=== PATIENT | female | born 1985 | race Caucasian/White ===

== ENCOUNTER → 2021-10-29 | Outpatient (CLI) | payer OTHER ==
--- NOTE | 2021-10-29 11:29 | CT ---
EXAMINATION TYPE: CT abdomen pelvis wo con DATE OF EXAM: 10/29/2021 HISTORY: RLQ pain CT DLP: 848 mGycm. Automated Exposure Control for Dose Reduction was Utilized. TECHNIQUE: CT scan of the abdomen and pelvis is performed with oral but without IV contrast. COMPARISON: NONE FINDINGS: Within the limitations of a non-contrast study, the following observations are made. LUNG BASES: No significant abnormality is appreciated. LIVER/GB: Intraluminal gallstones in gallbladder. No surrounding fluid or fat stranding. No biliary d ilatation. PANCREAS: No significant abnormality is seen. SPLEEN: No significant abnormality is seen. ADRENALS: No significant abnormality is seen. KIDNEYS: No renal stones or hydronephrosis is present bilaterally. No intraluminal calculus in bladde r. BOWEL: Oral contrast reaches the proximal to mid redundant sigmoid colon. There is contrast-filled no rmal-appearing appendix from base of cecum. There is no suspicious small or large bowel dilatation. T erminal ileum appears within normal limits coronal image 48. GENITAL ORGANS: Anteverted uterus. Ovaries symmetric and normal in size. Occasional scattered pelvic phleboliths. LYMPH NODES: No greater than 1cm abdominal or pelvic lymph nodes are appreciated. OSSEOUS STRUCTURES: No significant abnormality is seen. OTHER: Incidental note is made of left-sided IVC which is normal variant. IMPRESSION: No CT evidence for acute appendicitis. Gallstones without CT evidence for acute cholecyst itis.
== END | disposition home or self-care (01) ==
LOC: RADCTMAIN 08:49
PROVIDERS: ATTEND Family Medicine
DX: K80.20 Calculus of gallbladder without cholecystitis without obstruction (principal)
CPT/HCPCS: 74176

== ENCOUNTER → 2022-01-21 | Outpatient (CLI) | payer OTHER ==
--- NOTE | 2022-01-21 16:36 | US ---
EXAMINATION TYPE: US abdomen limited DATE OF EXAM: 01/21/2022 COMPARISON: CT CLINICAL HISTORY: R10.811 RUQ abd pain. RUQ pain TECHNIQUE: Multiple sonographic images of the right upper quadrant are obtained. FINDINGS: EXAM MEASUREMENTS: Liver Length: 13.7 cm Gallbladder Wall: 0.2 cm CBD: 0.5 cm Right Kidney: 10.6 x 4.0 x 4.2 cm Pancreas: Obscured by bowel gas Liver: Visualized portions appeared wnl Gallbladder: Multiple, mobile gallstones, wall not thickened Evidence for sonographic Singh's sign: No CBD: wnl Right Kidney: wnl, lower pole gassed out IMPRESSION: 1. No evidence for acute intra-abdominal process. 2. Cholelithiasis. 3. Lower pole right kidney is suboptimally evaluated.
== END | disposition home or self-care (01) ==
LOC: RADUSWWP 16:07
PROVIDERS: ATTEND Family Medicine
DX: K80.20 Calculus of gallbladder without cholecystitis without obstruction (principal)
CPT/HCPCS: 76705

== ENCOUNTER 2022-04-17 08:13 | Observation (INO) | payer OTHER ==
--- NOTE | 2022-04-17 08:35 | ED ---
General Adult HPI - General Chief complaint: Head Injury Stated complaint: [facility] - head injury Time Seen by Provider: 04/17/22 08:19 Source: patient Mode of arrival: ambulatory Limitations: no limitations - History of Present Illness Initial comments: Dictation was produced using [employer] dictation software. please excuse any grammatical, word or spelling errors. 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 Patient states she was cleaning one of the rooms when she walked into the TV. She struck the corner of the TV on the top of her head. Patient given to work today and was having symptoms of headache and seeing black spots that lasted for a couple seconds. Patient denies any loss of consciousness during the event. The ROS documented in this emergency department record has been reviewed and confirmed by me. Those systems with pertinent positive or negative responses have been documented in the HPI. All other systems are other negative and/or noncontributory. PHYSICAL EXAM: General Impression: Alert and oriented x3, not in acute distress HEENT: Normocephalic atraumatic, extra-ocular movements intact, pupils equal and reactive to light bilaterally, mucous membranes moist. Cardiovascular: Heart regular rate and rhythm Chest: Able to complete full sentences, no retractions, no tachypnea Musculoskeletal: Pulses present and equal in all extremities, no peripheral edema Motor: no focal deficits noted Neurological: CN II-XII grossly intact, no focal motor or sensory deficits noted Skin: Intact with no visualized rashes Psych: Normal affect and mood ED course: 36-year-old female presents emergency department for evaluation of head injury. Vital signs upon arrival are within acceptable limits. Computed tomography scan of the head and C-spine was obtained. Cervical spine was not initially ordered however hardware technician requested that orders be changed to CT brain and C-spine. There was incidental finding of pneumomediastinum. Patient reevaluated at bedside states that she has not been coughing or having shortness of breath per she is a nonsmoker. She does not consume marijuana or use any illicit drugs. This is likely a spontaneous pneumomediastinum. Patient reevaluated at bedside at 9:50 AM findings to medical condition. Patient will be admitted to [facility] hospitalist group with pulmonology on consult. Case discussed with Dr. Jerome Pleitez of pulmonology request the patient be admitted with repeat x-ray tomorrow. [facility] Related Data Home Medications Medication Instructions Recorded Confirmed Topiramate 50 mg PO HS 03/16/22 03/16/22 buPROPion XL [Wellbutrin XL] 300 mg PO HS 03/16/22 03/16/22 busPIRone HCL [Buspirone HCl] 15 mg PO HS 03/16/22 03/16/22 lamoTRIgine 150 mg PO HS 03/16/22 03/16/22 lisinopriL [Zestril] 20 mg PO HS 03/16/22 03/16/22 Allergies Allergy/AdvReac Type Severity Reaction Status Date / Time No Known Allergies Allergy Verified 04/17/22 08:25 Review of Systems ROS Statement: Those systems with pertinent positive or pertinent negative responses have been documented in the HPI. ROS Other: All systems not noted in ROS Statement are negative. Past Medical History Past Medical History: Hypertension History of Any Multi-Drug Resistant Organisms: None Reported Past Surgical History: Tubal Ligation Past Anesthesia/Blood Transfusion Reactions: No Reported Reaction Past Psychological History: Bipolar Smoking Status: Never smoker Past Alcohol Use History: Occasional Past Drug Use History: None Reported - Past Family History Mother Family Medical History: No Reported History General Exam Limitations: no limitations Course Vital Signs 04/17/22 08:22 Temperature 98 F Pulse Rate 80 Respiratory 18 Rate Blood Pressure 104/74 O2 Sat by Pulse 98 Oximetry Disposition Clinical Impression: Pneumomediastinum Disposition: ADMITTED IP TO THIS HOSP Condition: Fair Referrals: None,Stated [Primary Care Provider] - 1-2 days Decision Time: 09:49
--- NOTE | 2022-04-17 09:23 | CT ---
EXAMINATION TYPE: CT brain and cervical spine wo con DATE OF EXAM: 04/17/2022 COMPARISON: None HISTORY: 36-year-old female pain after Head injury CT DLP: 1331.9 mGycm Automated exposure control for dose reduction was used. Technique: Examination of the head was done in axial plane without intravenous contrast. Coronal and sagittal reconstructions performed. CT of the cervical spine was obtained in axial plane without intravenous injection of contrast mater ial. Coronal and sagittal reformatted images were obtained from the axial views for evaluation of f ractures, spinal alignment and canal. FINDINGS: Head: There is no evidence of acute intracranial hemorrhage, acute ischemic changes, mass, mass-effect, or extra-axial fluid collection. There is no effacement of cerebral sulci or basal subarachnoid cister ns. There is no hydrocephalus. There is no midline shift. Coon-white matter distinction is preserv ed. There is a polyp or mucosal retention cyst measuring 9 mm along the medial aspect of the right maxill galindo sinus. Paranasal sinuses and mastoid air cells are otherwise well pneumatized. Leftward nasal sep sabina lesion. Mastoid air cells are well pneumatized. Orbits and globes are intact. Cervical spine: Prominent pneumomediastinum incidentally noted on the right superior mediastinum extending to the tho racic inlet. No pneumothorax seen at the uppermost lungs. Reversal of the normal cervical lordosis could be positional or due to muscle spasm. No acute fracture or malalignment of the cervical spine. Minimal facet degenerative change lower cervical spine on the left. No evident canal compromise or neural foraminal narrowing. Sagittal and coronal reformatted images confirm above findings. COMBINED IMPRESSION: 1. No acute intracranial abnormality seen. 2. INCIDENTAL PNEUMOMEDIASTINUM ALONG THE RIGHT SUPERIOR MEDIASTINUM EXTENDING TO THE THORACIC INLET. CLINICALLY CORRELATE. 3. Otherwise, no acute fracture or malalignment of the cervical spine.
[2022-04-17] MEDS ORDERED: NALOXONE 0.4 MG/ML 1 ML VIAL IV PRN (09:49)
[2022-04-17] MEDS ORDERED: SODIUM CHLORIDE 0.9% 1,000 ML IV SCH (10:00)
[2022-04-17 10:02] LABS: Basophils # (A) 0.1 k/uL (0-0.2); Basophils % (A) 1 %; Eosinophils # (A) 0.2 k/uL (0-0.7); Eosinophils % (A) 3 %; HCT 37.7 % (34.0-46.0); HGB 13.5 gm/dL (11.4-16.0); Lymphocytes # (A) 1.9 k/uL (1.0-4.8); Lymphocytes % (A) 33 %; MCH 32.1 pg (25.0-35.0); MCHC 35.8 g/dL (31.0-37.0); MCV 89.6 fL (80.0-100.0); Mean Platelet Volume 7.7; Monocytes # (A) 0.3 k/uL (0-1.0); Monocytes % (A) 5 %; Neutrophils # (A) 3.2 k/uL (1.3-7.7); Neutrophils % (A) 57 %; Platelet Count 244 k/uL (150-450); RBC 4.21 m/uL (3.80-5.40); RDW 12.3 % (11.5-15.5); WBC 5.7 k/uL (3.8-10.6)
--- NOTE | 2022-04-17 10:03 | XR ---
EXAMINATION TYPE: XR chest 2V DATE OF EXAM: 04/17/2022 COMPARISON: None HISTORY: 36-year-old female pneumomediastinum on CT today, shortness of breath TECHNIQUE: PA and lateral views FINDINGS: The cardiomediastinal silhouette, aorta, and pulmonary vasculature are within normal limits. Known ri ght superior pneumomediastinum not well demonstrated radiographically. No pneumothorax. Heart normal size aorta and pulmonary vasculature within normal limits. No consolidation or pleural effusion. IMPRESSION: No acute cardiopulmonary process. The known right superior pneumomediastinum is not well appreciated radiographically.
[2022-04-17 10:19] LABS: African American GFR (CKD) >90 (>60 ml/min/1.73 sqM); Anion Gap 6 mmol/L; Blood Urea Nitrogen 18 mg/dL (7-17); Calcium 9.1 mg/dL (8.4-10.2); Carbon Dioxide 24 mmol/L (22-30); Chloride 110 mmol/L (98-107); Glucose 90 mg/dL (74-99); Non-African American GFR(CKD) >90 (>60 ml/min/1.73 sqM); Sodium 140 mmol/L (137-145)
[2022-04-17] MEDS ORDERED: ACETAMINOPHEN TAB 500 MG TAB PO STA (11:59)
[2022-04-17] MEDS ORDERED: ACETAMINOPHEN TAB 325 MG TAB PO PRN (11:59)
[2022-04-17 12:49] VITALS: BP 108/71; PULSE 77; RESP 14; TEMP 98.1
--- NOTE | 2022-04-17 14:42 | P.HPIM ---
History of Present Illness H&P Date: 04/17/22 This is a 36 year old female with medical history of migraines, bipolar disorder/anxiety, hypertension. 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 There is no focal lesion and scalp is soft now, patient states she did have a tender nodule there yesterday. Since she has reported dizziness and headache and reported to the ER today for further evaluation. Patient continues to report dizziness. Head and cervical spine CT was completed with incidental finding of pneumomediastinum along right superior mediastinum extending to the thoracic inlet. The patient reports she was recently treated with antibiotics fo r a common cold. Denies fever or chills, denies chest pain, no shortness of breath. She reports diffuse headache and is requesting medication. Temperature 98, heart rate 80, blood pressure 104/74, 98% room air. Home medications resumed, lisinopril has been placed on hold. Patient is admitted to observation and pulmonary has been consulted. REVIEW OF SYSTEMS: CONSTITUTIONAL: No fever, no malaise, no fatigue. HEENT: No recent visual problems or hearing problems. Denied any sore throat. CARDIOVASCULAR: No chest pain, orthopnea, PND, no palpitations, no syncope. PULMONARY: Reports shortness of breath, no cough, no hemoptysis. GASTROINTESTINAL: No diarrhea, no nausea, no vomiting, no abdominal pain. NEUROLOGICAL: Reports dizziness and headache. HEMATOLOGICAL: Denies any bleeding or petechiae. GENITOURINARY: Denies any burning micturition, frequency, or urgency. MUSCULOSKELETAL/RHEUMATOLOGICAL: Denies any joint pain, swelling, or any muscle pain. ENDOCRINE: Denies any polyuria or polydipsia. The rest of the 14-point review of systems is negative. PHYSICAL EXAMINATION: GENERAL: The patient is alert and oriented x3, not in any acute distress. Well developed, well nourished. HEENT: Pupils are round and equally reacting to light. EOMI. No scleral icterus. No conjunctival pallor. Normocephalic, atraumatic. No pharyngeal erythema. No thyromegaly. CARDIOVASCULAR: S1 and S2 present. No murmurs, rubs, or gallops. PULMONARY: Chest is clear to auscultation, no wheezing or crackles. No lungs sound noted right upper lobe. ABDOMEN: Soft, nontender, nondistended, normoactive bowel sounds. No palpable organomegaly. MUSCULOSKELETAL: No joint swelling or deformity. EXTREMITIES: No cyanosis, clubbing, or pedal edema. NEUROLOGICAL: Gross neurological examination did not reveal any focal deficits. SKIN: No rashes. Assessment and plan Assessment Head trauma secondary to hitting head on sharp corner Dizziness Spontaneous pneumomediastinum History hypertension, currently normotensive History bipolar/anxiety Full Code Plan Pulmonary consultation Resume home medications Hold lisinopril Supportive care The impression and plan of care has been dictated by Darlin Shultz Nurse Practitioner as directed. Dr. Laura MD I have performed a history and physical examination and medical decision making of this patient, discussed the same with the dictator, and agree with the dictators assessment and plan as written, documented as a scribe. Based on total visit time, I have performed more than 50% of this visit. Past Medical History Past Medical History: Hypertension History of Any Multi-Drug Resistant Organisms: None Reported Past Surgical History: Tubal Ligation Past Anesthesia/Blood Transfusion Reactions: No Reported Reaction Past Psychological History: Bipolar Smoking Status: Never smoker Past Alcohol Use History: Occasional Past Drug Use History: None Reported - Past Family History Mother Family Medical History: No Reported History Medications and Allergies Home Medications Medication Instructions Recorded Confirmed Type Topiramate 50 mg PO HS 03/16/22 04/17/22 History buPROPion XL [Wellbutrin XL] 300 mg PO HS 03/16/22 04/17/22 History busPIRone HCL 15 mg PO HS 03/16/22 04/17/22 History lamoTRIgine 150 mg PO HS 03/16/22 04/17/22 History Allergies Allergy/AdvReac Type Severity Reaction Status Date / Time methylprednisolone AdvReac Nausea & Verified 04/17/22 10:24 [From Medrol] Vomiting Physical Exam Vitals: Vital Signs Temp Pulse Resp BP Pulse Ox 04/17/22 10:18 84 15 107/80 100 04/17/22 08:22 98 F 80 18 104/74 98 Intake and Output 04/16/22 04/17/22 04/17/22 22:59 06:59 14:59 Other: Weight 72.121 kg Results CBC & Chem 7: 04/17/22 09:46 04/17/22 09:46 Labs: Abnormal Lab Results - Last 24 Hours (Table) 04/17/22 Range/Units 09:46 Chloride 110 H (98-107) mmol/L BUN 18 H (7-17) mg/dL Assessment and Plan Time with Patient: Less than 30
[2022-04-17] MEDS ORDERED: buPROPion XL 300 MG TAB.ER.24H PO SCH (21:00)
[2022-04-17] MEDS ORDERED: lamoTRIgine 100 MG TAB PO SCH (21:00)
[2022-04-17] MEDS ORDERED: busPIRone HCl 5 MG TAB PO SCH (21:00)
[2022-04-17] MEDS ORDERED: TOPIRAMATE 25 MG TAB PO SCH (21:00)
--- NOTE | 2022-04-18 23:04 | P.DS ---
Providers Date of admission: 04/17/22 09:50 Attending physician: Ana Lilia Sanchez Consults: 04/17/22 09:49 Consult Physician Routine Consulting Provider: Jeroem Pleitez Reason/Comments: pneumomediastinum Do you want consulting provider notified?: Already Contacted Primary care physician: Stated None Hospital Course: Final Diagnosis Head trauma secondary to hitting head on sharp corner Dizziness Spontaneous pneumomediastinum History hypertension, currently normotensive History bipolar/anxiety Full Code Discharge Disposition Patient is stable for discharge home. Recommend to follow up with a primary care provider. Patient instructed to return to the ER if she experiences any chest pain or shortness of breath. Patient is instructed to hold her lisinopril secondary to blood pressure in the low 100s systolic. Check blood pressure daily at home and resume lisinopril if blood pressure becomes elevated above the 130s systolic. Hospital Course This is a 36 year old female with medical history of migraines, bipolar disorder/anxiety, hypertension. 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 There is no focal lesion and scalp is soft now, patient states she did have a tender nodule there yesterday. Since she has reported dizziness and headache and reported to the ER today for further evaluation. Head and cervical spine CT was completed with incidental finding of pneumomediastinum along right superior mediastinum extending to the thoracic inlet. The patient reports she was recently treated with antibiotics for a common cold. Denies fever or chills, denies chest pain, no shortness of breath. She presents with blood pressure 104/74 and lisinopril has been placed on hold. She had a follow up chest xray showing no acute cardiopulmonary process. The known right superior pneumomediatstinum is not well appreciated radiographically. Images were reviewed personally by attending and did not appreciate pneumomediastinum on head/cervical spine CT or chest xray. Lungs sounds are currently clear in all lung weiss anteriorly and posteriorly. S1 S2 auscultated with regular rate and rhythm. Focal neurological exam is negative. For this reason patient is recommended to discharge home with above mentioned recommendations. States that dizziness has improved after receiving IV hydration. Continue to hold lisinopril on discharge. Please see Medical H and P for additional information. Please see medication reconciliation for a list of current medication. Thank you for allowing us to participate in the care of this patient. The impression and plan of care has been dictated by Darlin Shultz, Nurse Practitioner as directed. Dr. Laura MD I have performed a history and physical examination and medical decision making of this patient, discussed the same with the dictator, and agree with the dictators assessment and plan as written, documented as a scribe. Based on total visit time, I have performed more than 50% of this visit. Patient Condition at Discharge: Stable Plan - Discharge Summary New Discharge Prescriptions: Continue buPROPion XL [Wellbutrin XL] 300 mg PO HS lamoTRIgine 150 mg PO HS busPIRone HCL 15 mg PO HS Topiramate 50 mg PO HS Discontinued lisinopriL [Zestril] 20 mg PO HS Discharge Medication List Topiramate 50 mg PO HS 03/16/22 [History] buPROPion XL [Wellbutrin XL] 300 mg PO HS 03/16/22 [History] busPIRone HCL 15 mg PO HS 03/16/22 [History] lamoTRIgine 150 mg PO HS 03/16/22 [History] Follow up Appointment(s)/Referral(s): Torey Trent MD [STAFF PHYSICIAN] - 1-2 Days None,Stated [Primary Care Provider] - 1-2 days Patient Instructions/Handouts: Hypotension (DC) Activity/Diet/Wound Care/Special Instructions: Hold lisinopril on discharge blood pressure on the lower side. Check BP at home and resume if blood pressure improves above 130s systolic. Return to ER if you experience shortness of breath or chest pain. Follow up with primary care on discharge Discharge Disposition: HOME SELF-CARE
== END 2022-04-17 15:05 | disposition home or self-care (01) ==
LOC: EC 08:13 → 6NMEDSUR 09:50
PROVIDERS: ADMIT Internal Medicine; ATTEND Internal Medicine
DX: R42 Dizziness and giddiness (principal); J98.2 Interstitial emphysema; S09.90XA Unspecified injury of head, initial encounter; I10 Essential (primary) hypertension; F31.9 Bipolar disorder, unspecified; F41.9 Anxiety disorder, unspecified; Z79.899 Other long term (current) drug therapy; Z98.51 Tubal ligation status; W22.09XA Striking against other stationary object, initial encounter; Y93.H9 Activity, other involving exterior property and land maintenance, building and construction; Y92.230 Patient room in hospital as the place of occurrence of the external cause; Y99.0 Civilian activity done for income or pay
CPT/HCPCS: 99284; 80048; 85025; 71046; 72125; 70450; G0378

== ENCOUNTER → 2022-04-20 | Outpatient (CLI) | payer OTHER ==
--- NOTE | 2022-04-20 16:07 | XR ---
EXAMINATION TYPE: XR chest 2V DATE OF EXAM: 04/20/2022 COMPARISON: 04/17/2022 TECHNIQUE: PA and lateral views submitted. HISTORY: Shortness of breath FINDINGS: The lungs are clear and there is no pneumothorax, pleural effusion, or focal pneumonia. IMPRESSION: 1. No acute process.
== END | disposition home or self-care (01) ==
LOC: RADXRMAIN 15:45
PROVIDERS: ATTEND Internal Medicine
DX: J98.2 Interstitial emphysema (principal)
CPT/HCPCS: 71046

== ENCOUNTER 2022-05-05 08:29 | Day surgery (SDC) | payer OTHER ==
[2022-03-16 15:30] VITALS: BMI 26.7
--- NOTE | 2022-05-05 05:59 | P.GSHP ---
History of Present Illness H&P Date: 05/05/22 CHIEF COMPLAINT: GI bleed HISTORY OF PRESENT ILLNESS: The patient is a 36-year-old female who presents with GI bleed. Upper and lower endoscopy were offered for further evaluation and management. PAST MEDICAL HISTORY: Please see list. PAST SURGICAL HISTORY: Please see list. MEDICATIONS: Please see list. ALLERGIES: Please see list. SOCIAL HISTORY: No illicit drug use FAMILY HISTORY: No reports of Crohn disease or ulcerative colitis. REVIEW OF ORGAN SYSTEMS: CONSTITUTIONAL: No reports of fevers or chills. PHYSICAL EXAM: VITAL SIGNS: Stable GENERAL: Well-developed pleasant in no acute distress. HEENT: No scleral icterus. Extraocular movements grossly intact. Moist buccal mucosa. NECK: Supple without lymphadenopathy. CHEST: Unlabored respirations. Equal bilateral excursions. CARDIOVASCULAR: Regular rate and rhythm. Distal 2+ pulses. ABDOMEN: Soft, nondistended. MUSCULOSKELETAL: No clubbing, cyanosis, or edema. ASSESSMENT: 1. GI bleed PLAN: 1. Recommend proceeding with an upper and lower endoscopy Past Medical History Past Medical History: Hypertension Additional Past Medical History / Comment(s): "2 weeks ago I hit my head on TV, thought I had a concussion, went to ER, had CT scan and X-Ray, eventually was told everything was okay and I was discharged, no problems since." History of Any Multi-Drug Resistant Organisms: None Reported Past Surgical History: Tubal Ligation Past Anesthesia/Blood Transfusion Reactions: No Reported Reaction Past Psychological History: Bipolar Smoking Status: Never smoker Past Alcohol Use History: None Reported Past Drug Use History: None Reported - Past Family History Mother Family Medical History: No Reported History Medications and Allergies Home Medications Medication Instructions Recorded Confirmed Type Topiramate 50 mg PO HS 03/16/22 05/03/22 History buPROPion XL [Wellbutrin XL] 300 mg PO HS 03/16/22 05/03/22 History busPIRone HCL 15 mg PO HS 03/16/22 05/03/22 History lamoTRIgine 150 mg PO HS 03/16/22 05/03/22 History Allergies Allergy/AdvReac Type Severity Reaction Status Date / Time methylprednisolone AdvReac Nausea & Verified 05/03/22 13:57 [From Medrol] Vomiting
[~2022-05-05 08:29] MED LIST: LACTATED RINGERS 1,000 ML IV SCH
[2022-05-05 08:56] VITALS: RESP 16; TEMP 98
[2022-05-05] MEDS ORDERED: LIDOCAINE 2% INJ 20 MG/ML (2 ML VIAL) ONE (09:27)
[2022-05-05] MEDS ORDERED: PROPOFOL 10 MG/ML 20 ML VIAL IV ONE (09:27)
--- NOTE | 2022-05-05 09:43 | P.PCN ---
Date of Procedure: 05/05/22 Description of Procedure: PREOPERATIVE DIAGNOSIS: Gastroesophageal reflux disease. GI bleed POSTOPERATIVE DIAGNOSIS: Gastroesophageal reflux disease. Gastritis. Diaphragmatic hiatal hernia OPERATION: Esophagogastroduodenoscopy with biopsies along antrum and duodenal SURGEON: Apryl Stack MD ANESTHESIA: MAC. INDICATIONS: The patient is a 36-year-old female who presents with reflux disease. Benefits and risks of the procedure were described. Informed consent was obtained. DESCRIPTION: The patient was brought into the endoscopy suite and laid in the left lateral decubitus position. An Olympus gastroscope was passed along the posterior oropharynx down to the distal esophagus where the squamocolumnar junction was encountered at 35 cm from the incisors. The stomach was entered and no bile reflux was found. Additional findings are listed below. Biopsies with cold forceps were obtained of the antrum. The first through third portion of the duodenum was examined. Retroflexion of the scope confirmed Hill grade 3 lower esophageal valve. The squamocolumnar junction demonstrated LA grade A erosive esophagitis. The stomach was desufflated. The patient tolerated the procedure well. FINDINGS: Squamocolumnar junction 35 cm from the incisors. Diaphragmatic hiatus at 36 cm. Hiatal hernia, 1 cm Hill grade 3 lower esophageal valve. LA grade A erosive esophagitis. Biopsies obtained of duodenum Chronic gastritis RECOMMENDATIONS: Upper endoscopy as needed.
--- NOTE | 2022-05-05 09:56 | P.PCN ---
Date of Procedure: 05/05/22 Description of Procedure: PREOPERATIVE DIAGNOSIS: Change in bowel habits POSTOPERATIVE DIAGNOSIS: Microscopic colitis OPERATION: Colonoscopy to the cecum, ileocecal valve and appendiceal orifice. Colonoscopy with random cold forceps biopsies for microscopic colitis SURGEON: Apryl Stack MD. ANESTHESIA: MAC. INDICATIONS: The patient is a 36-year-old female who presents with altered stools including change in bowel habits. Benefits and risks were described and informed consent was obtained. DESCRIPTION OF PROCEDURE: The patient had undergone Suprep. The patient had been brought into the operating room and laid in the left lateral decubitus position. After adequate intravenous sedation, the rectum was examined with 2% lidocaine jelly. No external hemorrhoids were encountered. The rectal tone was within normal limits. No lesions were palpated in the rectal vault. An Olympus colonoscope was advanced until the cecum, ileocecal valve and appendiceal orifice were clearly viewed. The prep was excellent. No scattered diverticulosis was encountered. No colonic polyps were found. Cold forceps biopsies randomly were obtained for microscopic colitis. Retroflexion of the scope demonstrated grade 1 internal hemorrhoids without active bleeding or inflammation. The colon was desufflated. The patient had tolerated the procedure well. Withdrawal time was over 6 minutes. FINDINGS: Aronchick preparation quality scale 2 (1-5) Internal hemorrhoids, grade 1 No external prolapsed hemorrhoids. No arteriovenous malformations. No adenomatous polyps. Cold forceps biopsies obtained for microscopic colitis RECOMMENDATIONS: Lower endoscopy as needed Plan - Discharge Summary Discharge Rx Participant: No New Discharge Prescriptions: Continue buPROPion XL [Wellbutrin XL] 300 mg PO HS Acetaminophen [Tylenol] 325 mg PO DAILY PRN PRN Reason: Pain lamoTRIgine 150 mg PO HS busPIRone HCL 15 mg PO HS Topiramate 50 mg PO HS Discharge Medication List Topiramate 50 mg PO HS 03/16/22 [History] buPROPion XL [Wellbutrin XL] 300 mg PO HS 03/16/22 [History] busPIRone HCL 15 mg PO HS 03/16/22 [History] lamoTRIgine 150 mg PO HS 03/16/22 [History] Acetaminophen [Tylenol] 325 mg PO DAILY PRN 05/05/22 [History] Follow up Appointment(s)/Referral(s): Apryl Stack MD [STAFF PHYSICIAN] - 05/17/22 Patient Instructions/Handouts: Colitis (ED), GERD (Gastroesophageal Reflux Disease) (DC) Discharge Disposition: HOME SELF-CARE
[2022-05-05 10:18] VITALS: BP 114/71; PULSE 58
== END 2022-05-05 10:28 | disposition home or self-care (01) ==
LOC: ORWHC2ENDO 08:29
PROVIDERS: ATTEND Surgery Plastic and Reconstructive Surgery
DX: K29.50 Unspecified chronic gastritis without bleeding (principal); K64.8 Other hemorrhoids; K44.9 Diaphragmatic hernia without obstruction or gangrene; K21.00 Gastro-esophageal reflux disease with esophagitis, without bleeding; I10 Essential (primary) hypertension; F31.9 Bipolar disorder, unspecified; Z98.51 Tubal ligation status; Z79.1 Long term (current) use of non-steroidal anti-inflammatories (NSAID); Z79.899 Other long term (current) drug therapy; Z88.8 Allergy status to other drugs, medicaments and biological substances
CPT/HCPCS: 81025; 88305; 45380; 43239; J2704; J2001

== ENCOUNTER → 2022-06-14 | Outpatient (CLI) | payer OTHER ==
[2022-06-15 01:34] LABS: HCT 39.9 % (37.2-46.3); HGB 13.3 g/dL (12.0-15.0); MCH 30.9 pg (27.0-32.0); MCHC 33.3 g/dL (32.0-37.0); MCV 92.6 fL (80.0-97.0); Mean Platelet Volume 9.7 fL (9.5-12.2); NRBC Per 100 WBC 0 /100 WBCS (0.0-0.0); Platelet Count 349 X 10*3/uL (140-440); RBC 4.31 X 10*6/uL (4.10-5.20); RDW 12.1 % (11.5-14.5); WBC 8.56 X 10*3/uL (4.50-10.00)
== END | disposition home or self-care (01) ==
LOC: LABPAT 15:09
PROVIDERS: ATTEND Surgery Plastic and Reconstructive Surgery
DX: Z01.812 Encounter for preprocedural laboratory examination (principal); K82.9 Disease of gallbladder, unspecified
CPT/HCPCS: 85027

== ENCOUNTER 2022-06-17 07:12 | Day surgery (SDC) | payer OTHER ==
[2022-06-14 10:22] VITALS: BMI 28.1
[~2022-06-17 07:12] MED LIST changes: +HEPARIN SODIUM,PORCINE/PF 5,000 UNIT/0.5 ML SYRINGE SQ PRN; -LACTATED RINGERS 1,000 ML IV SCH
[2022-06-17] MEDS ORDERED: MIDAZOLAM 2 MG/2 ML VIAL IV PRN (07:35)
[2022-06-17] MEDS ORDERED: LACTATED RINGERS 1,000 ML IV SCH (07:35)
[2022-06-17] MEDS ORDERED: ONDANSETRON 4 MG/2 ML VIAL IVP ONE (07:35)
[2022-06-17] MEDS ORDERED: SCOPOLAMINE 1 MG/72 HR PATCH TRANSDERM ONE (07:35)
[2022-06-17] MEDS ORDERED: HYDROmorphone 0.5 MG/0.5 ML SYRINGE IVP PRN (07:35)
--- NOTE | 2022-06-17 07:41 | P.GSHP ---
History of Present Illness H&P Date: 06/17/22 CHIEF COMPLAINT: Cholecystitis HISTORY OF PRESENT ILLNESS: The patient is a 36-year-old female who presents with history of epigastric including right upper quadrant abdominal pain. She underwent diagnostic studies for her gallbladder. Separately her clinical picture was consistent with cholecystitis. Now she presents for surgical intervention. PAST MEDICAL HISTORY: Please see list PAST SURGICAL HISTORY: Please see list MEDICATIONS: Please see list ALLERGIES: Please see list SOCIAL HISTORY: Please see list FAMILY HISTORY: Please see list REVIEW OF ORGAN SYSTEMS: CONSTITUTIONAL: No reports of fevers or chills. HEENT: Denies any troubles with the vision or hearing. ENDOCRINE: No reports of hypothyroidism. No diabetes. RESPIRATORY: No recent pneumonias. CARDIOVASCULAR: Denies chest pain or palpitations GI: No blood in stools or constipation. MUSCULOSKELETAL: Has occasional joint pain including back pain. NEURO: No seizure disorders. Has headaches. No recent stroke. PSYCH: Has depression. No suicidal ideation. GENITOURINARY: No active blood in urine. No urinary hesitancy. HEMATOLOGIC: No personal or family history of DVTs or pulmonary emboli. SKIN: No skin cancer. PHYSICAL EXAM: VITAL SIGNS: Afebrile vital signs stable GENERAL: Well-developed pleasant in no acute distress. HEENT: No scleral icterus. Extraocular movements grossly intact. Moist buccal mucosa. NECK: Supple without lymphadenopathy. CHEST: Unlabored respirations. Equal bilateral excursions. CARDIOVASCULAR: Regular rate regular rhythm rhythm. Distal 2+ pulses. ABDOMEN: Soft, nondistended. Tender along the epigastrium and right upper quadrant. MUSCULOSKELETAL: No clubbing, cyanosis, or edema. NEURO: Cranial nerves II to XII within normal limits. No focal or lateralizing signs. PSYCH: Alert and oriented to person, place and time. SKIN: Well-perfused good skin turgor. ASSESSMENT: 1. Epigastric and right upper quadrant abdominal pain 2. Chronic cholecystitis 3. Symptomatic gallstones. PLAN: 1. Will need a robotic cholecystectomy possible open. Benefits and risks were described. 2. Heparin for DVT prophylaxis 5000 units. 3. Antibiotic prophylaxis. 4. CBC and CMP on day of procedure 5. Non-narcotic pre and post op pain management reviewed. 6. Indocyanine green for biliary imaging. Past Medical History Past Medical History: Hypertension Additional Past Medical History / Comment(s): GALLBLADDER DISORDER. COLITIS. HIATAL HERNIA History of Any Multi-Drug Resistant Organisms: None Reported Past Surgical History: Tubal Ligation Additional Past Surgical History / Comment(s): EGD, COLONOSCOPY Past Anesthesia/Blood Transfusion Reactions: No Reported Reaction Smoking Status: Never smoker - Past Family History Mother Family Medical History: No Reported History Medications and Allergies Home Medications Medication Instructions Recorded Confirmed Type Topiramate 50 mg PO HS 03/16/22 06/14/22 History buPROPion XL [Wellbutrin XL] 300 mg PO HS 03/16/22 06/14/22 History busPIRone HCL 15 mg PO HS 03/16/22 06/14/22 History lamoTRIgine 150 mg PO HS 03/16/22 06/14/22 History Acetaminophen [Tylenol] 325 mg PO DAILY PRN 05/05/22 06/14/22 History Allergies Allergy/AdvReac Type Severity Reaction Status Date / Time methylprednisolone AdvReac Nausea & Verified 06/14/22 09:36 [From Medrol] Vomiting
[2022-06-17] MEDS ORDERED: SCOPOLAMINE 1 MG/72 HR PATCH TRANSDERM STA (07:42)
[2022-06-17] MEDS ORDERED: ACETAMINOPHEN TAB 500 MG TAB PO STA (07:42)
[2022-06-17] MEDS ORDERED: GABAPENTIN 300 MG CAP PO STA (07:42)
[2022-06-17] MEDS ORDERED: INDOCYANINE GREEN 25 MG VIAL IV STA (07:43)
[2022-06-17] MEDS ORDERED: LACTATED RINGERS 1,000 ML IV ONE ×2 (07:51→10:47)
[2022-06-17 08:17] LABS: ALT 15 U/L (4-34); AST 18 U/L (14-36); African American GFR (CKD) >90 (>60 ml/min/1.73 sqM); Alkaline Phosphatase 56 U/L (38-126); Anion Gap 9 mmol/L; Blood Urea Nitrogen 14 mg/dL (7-17); Calcium 9.6 mg/dL (8.4-10.2); Carbon Dioxide 24 mmol/L (22-30); Chloride 107 mmol/L (98-107); Glucose 96 mg/dL (74-99); Non-African American GFR(CKD) >90 (>60 ml/min/1.73 sqM); Potassium 3.3 mmol/L (3.5-5.1); Sodium 140 mmol/L (137-145); Total Bilirubin 0.5 mg/dL (0.2-1.3); Total Protein 8.3 g/dL (6.3-8.2)
[2022-06-17 08:19] LABS: Basophils # (A) 0.1 k/uL (0-0.2); Basophils % (A) 1 %; Eosinophils # (A) 0.1 k/uL (0-0.7); Eosinophils % (A) 2 %; HCT 41.1 % (34.0-46.0); HGB 14.7 gm/dL (11.4-16.0); Lymphocytes # (A) 1.4 k/uL (1.0-4.8); Lymphocytes % (A) 20 %; MCH 31.3 pg (25.0-35.0); MCHC 35.8 g/dL (31.0-37.0); MCV 87.6 fL (80.0-100.0); Mean Platelet Volume 7.1; Monocytes # (A) 0.3 k/uL (0-1.0); Monocytes % (A) 5 %; Neutrophils % (A) 71 %; Platelet Count 298 k/uL (150-450); RBC 4.69 m/uL (3.80-5.40); RDW 12.2 % (11.5-15.5); WBC 7.1 k/uL (3.8-10.6)
[2022-06-17] MEDS ORDERED: fentaNYL (PF) 50 MCG/1 ML VIAL IVP ONE (08:46)
[2022-06-17] MEDS ORDERED: MIDAZOLAM 2 MG/2 ML VIAL IVP ONE (08:46)
--- NOTE | 2022-06-17 09:10 | P.ANPRN ---
Procedure Note - Anesthesia - Nerve Block Performed Bilateral Erector Spinae Single Time Out Performed: Yes Date of Procedure: 06/17/22 Procedure Start Time: 08:45 Procedure Stop Time: 09:00 Location of Patient: PreOp Indication: Acute Post-Operative Pain, Requested by Surgeon Sedation Type: Sedate with meaningful contact maintained Preparation: Sterile Prep, Sterile Dressing Position: Prone Catheter: None Needle Types: Facet Needle Gauge: 20 Ultrasound used to visualize needle placement: Yes Ultrasound used to observe medication spread: Yes Injectate: Other (see comment) (0.25% ropicacaine 25 ml per side) Blood Aspirated: No Pain Paresthesia on Injection Noted: No Resistance on Injection: Normal Image Stored and Saved: Yes Events: Uneventful and Well Tolerated
[2022-06-17] MEDS ORDERED: MIDAZOLAM 2 MG/2 ML VIAL ONE (09:20)
[2022-06-17] MEDS ORDERED: NEOSTIGMINE 1 MG/ML 10 ML VIAL ONE (09:20)
[2022-06-17] MEDS ORDERED: fentaNYL (PF) 50 MCG/ML 2 ML AMP ONE (09:20)
[2022-06-17] MEDS ORDERED: SUCCINYLCHOLINE CHLORIDE 200 MG/10 ML VIAL IV ONE (09:20)
[2022-06-17] MEDS ORDERED: LIDOCAINE 2% INJ 20 MG/ML (2 ML VIAL) ONE (09:20)
[2022-06-17] MEDS ORDERED: HYDROmorphone (PF) 1 MG/ML ONE (09:20)
[2022-06-17] MEDS ORDERED: ROCURONIUM 10 MG/ML (5 ML VIAL) IV ONE (09:20)
[2022-06-17] MEDS ORDERED: ROPIVACAINE 5 MG/ML 30 ML VIAL ONE (09:20)
[2022-06-17] MEDS ORDERED: GLYCOPYRROLATE 0.2 MG/ML 2 ML VIAL ONE (09:20)
[2022-06-17] MEDS ORDERED: PROPOFOL 10 MG/ML 20 ML VIAL IV ONE (09:20)
[2022-06-17] MEDS ORDERED: LIDOCAINE 1%-EPI 1:100,000 20 ML VIAL SQ ONE (09:45)
--- NOTE | 2022-06-17 10:49 | P.OP ---
Date of Procedure: 06/17/22 Description of Procedure: SURGEON: APRYL STACK MD PREOPERATIVE DIAGNOSES: 1. Symptomatic gallstones 2. Right upper quadrant abdominal pain 3. Depressive disorder 4. Migraines POSTOPERATIVE DIAGNOSES: 1. Symptomatic gallstones 2. Right upper quadrant abdominal pain 3. Depressive disorder 4. Migraines OPERATION: Robotic-assisted da Brandin Xi laparoscopic cholecystectomy, multiport with FIREFLY ESTIMATED BLOOD LOSS: 5 mL. SPECIMENS REMOVED: Gallbladder. COMPLICATIONS: None. OPERATIVE FINDINGS: 1. Cystic duct embedded in coiled infundibulum anterior to common bile duct, carefully dissected 2. Moderately enlarged gallbladder for cholecystectomy 3. Intrahepatic gallbladder adding complexity to case INDICATIONS: The patient is a 36-year-old female who presents with symptomatic gallstones. Robotic assisted laparoscopic approach was described. Benefits and risks of the procedure including but not limited to bleeding, infection, injury to the biliary tree was described. Informed consent was obtained. DESCRIPTION OF PROCEDURE: Patient was brought to the operating room, placed in supine position. After general induction, the abdomen had been prepped and draped in standard sterile fashion. The robotic da Brandin XI system was primed. After a timeout protocol was performed, the patient had been prepped and draped in standard sterile fashion. The patient was injected with indocyanine green. A 5 mm 0 degrees laparoscopic trocar entry was performed along the left upper quadrant. The abdomen insufflated to 15 mmHg pressure which was tolerated well. Diagnostic laparoscopy demonstrated no injury to bowel viscera or mesentery. The liver surface was unremarkable. Next, two 8 mm robotic ports were placed along the right upper abdomen. The camera 8-mm port was maintained along the epigastrium. Another 8 mm port was placed along the left upper abdominal wall after exchanging the 5 mm port. Please note that the ports were placed at least 10 to 15 cm away from the target anatomy of the gallbladder. The robot was docked along the left lateral abdomen. The patient was repositioned in reverse Trendelenburg position. Using a grasper for arm 3, a grasper for arm 4, including hook cautery for arm 1, the robotic system was docked and primed as described. Instruments were interchanged by the dental assistant including hook cautery, Bovie cautery and clip appliers. I had sat at the console. Next attention was brought to the infundibulum and cystic structures. The infundibulum was coiled anterior to the cystic duct and common bile duct. The cystic duct was less than 4 mm embedded in the coiled infundibulum. Careful dissection was performed to free and expose the cystic duct. The infundibulum and cystic duct were dissected free from surrounding tissues. The cystic duct was isolated. FIREFLY was used to identify the cystic artery and cystic structures. A critical view of safety was obtained. Large PLASTIC clips were used throughout the entire case. Using a clip kiln hand, 3 clips were placed at the junction of the infundibulum and cystic duct. The cystic duct was divided between clips. Next, the cystic artery was similarly clipped and cauterized. Electro-Bovie cautery was used to remove the gallbladder from the hepatic fossa. The gallbladder was embedded in the liver adding complexity to the case. Hemostasis was checked and found to be adequate. The robot was undocked. I re-scrubbed into the case. Using a 10 mm Endo Catch bag via the left upper quadrant incision, the specimen was removed from the abdominal cavity. The gallbladder was large requiring extension of the excision. The fascia was closed using 0 Vicryl and Jhonny Rosa. All pneumoperitoneum instruments were evacuated from the abdominal cavity. The incisions were reapproximated using 4-0 Monocryl in an interrupted subcuticular fashion. Fascial defects were less than 8 mm in size. Please note along the trocar sites, local anesthetic was placed as a field block prior to insertion of all instruments. Liquid glue was applied to the skin. At the end of the procedure needle, sponge, and instrument count had been verified correct by the surgical lead. The patient was transferred to postanesthesia care unit in stable condition. Intraoperative films were given to the patient's family. Plan - Discharge Summary Discharge Rx Participant: Yes New Discharge Prescriptions: New Acetaminophen Tab [Tylenol Tab] 1,000 mg PO Q6HR PRN #30 tablet PRN Reason: Pain Simethicone [Gas-X] 125 mg PO AC-TID PRN #20 capsule PRN Reason: Pain Continue buPROPion XL [Wellbutrin XL] 300 mg PO HS Acetaminophen [Tylenol] 325 mg PO DAILY PRN PRN Reason: Pain lamoTRIgine 150 mg PO HS busPIRone HCL 15 mg PO HS Topiramate 50 mg PO HS Discharge Medication List Topiramate 50 mg PO HS 03/16/22 [History] buPROPion XL [Wellbutrin XL] 300 mg PO HS 03/16/22 [History] busPIRone HCL 15 mg PO HS 03/16/22 [History] lamoTRIgine 150 mg PO HS 03/16/22 [History] Acetaminophen [Tylenol] 325 mg PO DAILY PRN 05/05/22 [History] Acetaminophen Tab [Tylenol Tab] 1,000 mg PO Q6HR PRN #30 tablet 06/17/22 [Rx] Simethicone [Gas-X] 125 mg PO AC-TID PRN #20 capsule 06/17/22 [Rx] Follow up Appointment(s)/Referral(s): Apryl Stack MD [STAFF PHYSICIAN] - 06/28/22 Patient Instructions/Handouts: Gallstones (GEN), Cholecystitis (ED), Low Fat Diet (DC), *[facility] - Managing Your Pain After Surgery Without Opioids Activity/Diet/Wound Care/Special Instructions: No lifting over 10 pounds in 2 weeks until Jul 01. May shower. No bath tub soaks for two weeks until Jul 01 Diet as tolerated. No driving while on narcotics. Use Tylenol and ibuprofen or Aleve scheduled for the next 24-48 hours for best pain relief. Use ice along incisions for today to prevent swelling. For today, avoid high fat foods for next 2 days Discharge Disposition: HOME SELF-CARE
[2022-06-17 10:58] VITALS: TEMP 97
[2022-06-17] MEDS ORDERED: HYDROmorphone 0.5 MG/0.5 ML SYRINGE IVP ONE ×3 (11:04→11:23)
[2022-06-17 11:46] VITALS: RESP 16
[2022-06-17 12:02] VITALS: BP 123/82; PULSE 81
== END 2022-06-17 12:32 | disposition home or self-care (01) ==
LOC: OR 07:12
PROVIDERS: ATTEND Surgery Plastic and Reconstructive Surgery
DX: K80.10 Calculus of gallbladder with chronic cholecystitis without obstruction (principal); F32.A Depression, unspecified; G89.18 Other acute postprocedural pain; I10 Essential (primary) hypertension; Z98.51 Tubal ligation status; Z79.899 Other long term (current) drug therapy
CPT/HCPCS: 64461; 80053; 85025; 47563; J2250; J0330; J2710; J0690; J2405; J3010 ×2; J1170 ×2; J2795; J2704; J1644; J2001; 88304